=== PATIENT | male | born 2000 | race Caucasian/White ===

== ENCOUNTER 2020-08-28 09:56 | Observation (INO) | payer OTHER, MEDICAID, SELFPAY ==
[2020-08-28] VITALS (24 sets, daily range): BP systolic 113–143; BP diastolic 57–79; PULSE 61–87; RESP 12–22; TEMP 36.6–36.9; O2SAT 97–100; BMI 38.4; BMI 33.0
[2020-08-28 10:43] LABS: Add Manual Diff / Slide Review NO; Basophils Absolute Auto 0 /uL (0-100); Basophils Percent Auto 0.5 % (0-2); Eosinophils Absolute Auto 100 /uL (0-450); Hematocrit 50.1 % (41-53); Hemoglobin 16.5 g/dL (13.5-17.5); Lymphocytes Absolute Auto 1900 /uL (1100-4500); Lymphocytes Percent Auto 22.1 % (25-40); Mean Corpuscular HGB Conc 32.9 % (30-36); Mean Corpuscular Hemoglobin 28.9 PG (26-34); Mean Corpuscular Volume 87.6 fL (80-100); Monocytes Absolute Auto 500 /uL (0-900); Monocytes Percent Auto 5.5 % (3-14); Neutrophils Absolute Auto 6000 /uL (1500-7000); Neutrophils Percent Auto 70.9 % (50-75); Platelet Count 257 X10^3/uL (150-400); Red Blood Cell Count 5.71 X10^6/uL (4.5-5.9); Red Cell Distribution Width 14.2 % (11.6-14.8); White Blood Cell Count 8.5 X10^3/uL (4.5-11.0)
[2020-08-28 10:52] LABS: Bacteria Urine None Seen; WBC Urine None Seen (0-5/HPF)
[2020-08-28 10:54] LABS: Alanine Aminotransferase 19 IU/L (<50); Albumin 4.8 g/dL (3.5-5.0); Albumin Globulin Ratio 1.4 (1.0-2.8); Alkaline Phosphatase 86 U/L (38-126); Aspartate Aminotransferase 18 IU/L (17-59); BUN Creatinine Ratio 17.2 (6-22); Bilirubin Total 0.8 mg/dL (0.2-1.3); Blood Urea Nitrogen 10 mg/dL (9-20); Calcium 9.9 mg/dL (8.4-10.2); Carbon Dioxide 27 mmol/L (22-32); Chloride 99 mmol/L (98-107); Estimated Glomerular Filt Rate > 60.0 mL/min (>60); Globulin 3.4 g/dL (1.7-4.1); Glucose 338 mg/dL (70-100); HEMOLYSIS 21 (0-50); Potassium 3.9 mmol/L (3.4-5.1); Sodium 136 mmol/L (137-145); Total Protein 8.2 g/dL (6.3-8.2)
[2020-08-28 10:56] LABS: Ketones (Beta-Hydroxybutyrate) 0.33 mmol/L (<0.27)
[2020-08-28] MEDS: SODIUM CHLORIDE 0.9% 1,000 ML 1000 ML IV (10:57)
[2020-08-28 11:02] LABS: Culture Indicated Urine Cult Not Indicated; RBC Urine 0-1/HPF (0-5/HPF)
--- NOTE | 2020-08-28 12:24 | ED_ITS ---
HPI - General Adult General Chief complaint: Diabetic Problem Stated complaint: diabetic Time Seen by Provider: 08/28/20 10:12 Source: patient and family Mode of arrival: Wheelchair History of Present Illness HPI narrative: Patient here with his brother. I did speak with his mother by phone. Patient denies any drug use. Patient states he is not out of his diabetes medications. Just prior take it in the past couple weeks. He did take it last night. No nausea vomiting diarrhea dysuria polyuria polydipsia polyphagia. Patient complains of chest pain with near-syncope and dyspnea palpitations and blurry vision. Onset 3 hours ago at work. Was doing heavy lifting moving crab legs. 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 Had blurry vision right eye than the left eye. Then had palpitations and chest pain and near- syncope. Lasted about 1 hour. Now symptoms have resolved. Strong family history of coronary disease and strokes. Patient mother had heart attack last month. His grandfather has history of heart disease. Each of them started in early 40s. Patient is 19 years old. Related Data Home Medications Medication Instructions Recorded Confirmed glipizide 10 mg PO BID 08/29/20 08/29/20 Allergies Allergy/AdvReac Type Severity Reaction Status Date / Time No Known Drug Allergies Allergy Verified 08/28/20 10:01 Review of Systems Review of Systems Narrative: GENERAL: Denies chills, fatigue, malaise, fever, sweats. HEENT: Denies sinus pain, ear pain, sore throat, difficulty swallowing RESPIRATORY: Complains of dyspnea, denies cough CARDIOVASCULAR: Complains of chest pain, palpitations, edema, GASTROINTESTINAL: Denies nausea, vomiting, abdominal pain, diarrhea, constipation, melena. : Denies dysuria, frequency, hematuria MUSCULOSKELETAL: denies muscle or bony pain SKIN: Denies rash, skin lesions NEUROLOGIC: Denies weakness, headache, numbness, change in speech, confusion PSYCHIATRIC: No SI or HI or hallucinations ROS Unobtainable: All systems reviewed & are unremarkable except as noted in HPI and below Patient History Family History (Updated 08/29/20 @ 01:41 by KEENA Moss-) Mother Heart attack Grandfather Heart disease Social History household members: family Smoking Status: Unknown if ever smoked Smoking Status: Unknown if ever smoked alcohol intake frequency: holidays/special occasions only Substance Use Type: does not use Exam Narrative Exam Narrative: GENERAL: patient appears stated age. Well-nourished, well-developed patient, in no distress, not toxic not dyspneic HEAD: Normocephalic. EYES: Pupils equal round and reactive. No scleral icterus. No injection no discharge ENT: Mucous membranes moist. No drooling no tongue elevation no trismus no malocclusion NECK: Trachea midline. Non tender CARDIOVASCULAR: Regular rate and rhythm without murmurs, gallops, or rubs. RESPIRATORY: Clear to auscultation. Breath sounds equal bilaterally. No wheezes, rales, or rhonchi. GASTROINTESTINAL: Abdomen soft, non-tender, nondistended. EXTREMITIES: No gross deformities. BACK: Nontender without deformity or crepitance. No flank tenderness. NEURO: AOx4. SKIN: Warm and dry PSYCH: Not anxious, is cooperative Initial Vital Signs Initial Vital Signs: Vital Signs Temperature 98.4 F 08/28/20 10:01 Pulse Rate 86 08/28/20 10:01 Respiratory Rate 16 08/28/20 10:01 Blood Pressure 119/73 08/28/20 10:01 Pulse Oximetry 98 08/28/20 10:01 Scores HEART Score Heart Score history: Moderately Suspicious Heart Score EKG: Non-Specific repolarization disturbance Heart Score Age: < 45 years old Heart Score risk factors: 1-2 risk factors Heart Score troponin: < or = to normal limit Heart Score Total: 3 Course Course Course Narrative: No chest pain at this time Decision to Admit Date: 08/28/20 Decision to Admit time: 15:05 Orders Ordered: Acetaminophen (Tylenol) 650 mg PO Q6HR PRN PRN Reason: Fever/Mild Pain (1-3) Al Hydrox/Mg Hydrox/Simethicone (Maalox Plus) 30 ml PO Q6HR PRN PRN Reason: Dyspepsia Aspirin (Aspirin Ec) 81 mg PO DAILY MARILYN Last Admin: 08/29/20 08:39 Dose: 81 mg Documented by: CMCFARL Bisacodyl (Dulcolax) 10 mg [place] DAILY PRN PRN Reason: Constipation Calcium Carbonate (Tums) 1,000 mg PO Q4HR PRN PRN Reason: Dyspepsia Dextrose (D50w) 25 gm IV PRN PRN; Protocol PRN Reason: Hypoglycemia Dextrose (D50w) 25 gm IV PRN PRN; Protocol PRN Reason: Hypoglycemia Insulin Aspart (Novolog Flexpen) 0 unit SUBCUT [facility]; Protocol Last Admin: 08/29/20 08:39 Dose: 2 unit Documented by: LAUREANO Cosigned by: NEHEMIAH Morphine Sulfate (Morphine) 2 mg IV Q5MIN PRN PRN Reason: Chest Pain Naloxone HCl (Narcan) 0.2 mg IV Q2MIN PRN PRN Reason: Opiate Reversal Nitroglycerin (Nitrostat) 0.4 mg SL [id number] PRN PRN Reason: Chest Pain Ondansetron HCl (Zofran) 4 mg IV Q8HR PRN PRN Reason: Nausea And Vomiting Sodium Chloride (Normal Saline 0.9% Flush) 10 ml IV PRN PRN PRN Reason: Flush Sodium Chloride (Normal Saline 0.9% Flush) 10 ml IV BID [facility] Last Admin: 08/29/20 08:40 Dose: 10 ml Documented by: Admin: 08/28/20 21:38 Dose: 10 ml Documented by: JOSE Discontinued Medications Aspirin (Aspirin Chew) 324 mg PO NOW ONE Stop: 08/28/20 15:06 Last Admin: 08/28/20 15:37 Dose: 324 mg Documented by: AALIYAH Sodium Chloride (Normal Saline 0.9%) 1,000 mls @ 1,000 mls/hr IV BOLUS ONE Stop: 08/28/20 11:14 Last Infusion: 08/28/20 12:29 Dose: 0 mls/hr Documented by: Admin: 08/28/20 10:57 Dose: 1,000 mls/hr Documented by: TIMO Insulin Aspart (Novolog Flexpen) 0 unit SUBCUT [facility]; Protocol Last Admin: 08/29/20 08:42 Dose: Not Given Documented by: Admin: 08/28/20 21:02 Dose: Not Given Documented by: JOSE Reevaluation(s) Reevaluation #1: No active chest pain at this time no arrhythmia Time: 15:27 Consultations Consultation #1: Spoke with cardiology Dr. Chun, recommends patient for treadmill stress test. No echocardiogram Time: 15:06 Consultation #2: Spoke with hospitalist, Dr. Fair, will admit Time: 15:28 Vital Signs Vital signs: Vital Signs - 8 hr 08/28/20 10:01 08/28/20 10:37 08/28/20 10:52 Temperature 98.4 F Pulse Rate 86 84 76 Pulse Rate [Orthostatic Lying] Pulse Rate [Orthostatic Sitting] Pulse Rate [Orthostatic Standing] Respiratory Rate 16 13 Blood Pressure 119/73 116/73 Blood Pressure [Orthostatic Lying] Blood Pressure [Orthostatic Sitting] Blood Pressure [Orthostatic Standing] Pulse Oximetry 98 98 99 08/28/20 11:00 08/28/20 11:30 08/28/20 12:00 Temperature Pulse Rate 79 79 76 Pulse Rate [Orthostatic Lying] Pulse Rate [Orthostatic Sitting] Pulse Rate [Orthostatic Standing] Respiratory Rate 20 19 18 Blood Pressure 131/68 120/65 139/74 Blood Pressure [Orthostatic Lying] Blood Pressure [Orthostatic Sitting] Blood Pressure [Orthostatic Standing] Pulse Oximetry 97 99 100 08/28/20 12:30 08/28/20 12:50 08/28/20 12:51 Temperature Pulse Rate 73 76 81 Pulse Rate [Orthostatic Lying] Pulse Rate [Orthostatic Sitting] Pulse Rate [Orthostatic Standing] Respiratory Rate 22 20 19 Blood Pressure 124/74 125/79 129/79 Blood Pressure [Orthostatic Lying] Blood Pressure [Orthostatic Sitting] Blood Pressure [Orthostatic Standing] Pulse Oximetry 99 99 98 08/28/20 12:53 08/28/20 13:00 08/28/20 13:30 Temperature Pulse Rate 68 71 Pulse Rate [Orthostatic Lying] 77 Pulse Rate [Orthostatic Sitting] 79 Pulse Rate [Orthostatic Standing] 77 Respiratory Rate 17 21 Blood Pressure 120/72 Blood Pressure [Orthostatic Lying] 125/79 Blood Pressure [Orthostatic Sitting] 132/74 Blood Pressure [Orthostatic Standing] 129/79 Pulse Oximetry 98 99 Medical Decision Making Differential Diagnosis Differential Diagnosis: Chest pain/arrhythmia/dehydration/hyperglycemia angina Lab Data Lab results reviewed: Yes I reviewed the patient's lab results. Result diagrams: 08/29/20 05:13 08/29/20 05:13 Labs: Lab Results 08/28/20 08/28/20 08/28/20 Range/Units 10:35 10:35 10:35 WBC 8.5 (4.5-11.0) X10^3/uL RBC 5.71 (4.5-5.9) X10^6/uL Hgb 16.5 (13.5-17.5) g/dL Hct 50.1 (41-53) % MCV 87.6 (80-100) fL MCH 28.9 (26-34) PG MCHC 32.9 (30-36) % RDW 14.2 (11.6-14.8) % Plt Count 257 (150-400) X10^3/uL Neut % (Auto) 70.9 (50-75) % Lymph % (Auto) 22.1 L (25-40) % [place] % (Auto) 5.5 (3-14) % Eos % (Auto) 1.0 L (2-4) % Baso % (Auto) 0.5 (0-2) % Neut # (Auto) 6000 (9540-5920) /uL Lymph # (Auto) 1900 (8056-9126) /uL [place] # (Auto) 500 (0-900) /uL Eos # (Auto) 100 (0-450) /uL Baso # (Auto) 0 (0-100) /uL Sodium 136 L (137-145) mmol/L Potassium 3.9 (3.4-5.1) mmol/L Chloride 99 (98-107) mmol/L Carbon Dioxide 27 (22-32) mmol/L BUN 10 (9-20) mg/dL Creatinine 0.58 L (0.66-1.25) mg/dL Estimated GFR > 60.0 (>60) mL/min BUN/Creatinine Ratio 17.2 (6-22) Glucose 338 H (70-100) mg/dL Calcium 9.9 (8.4-10.2) mg/dL Magnesium (1.6-2.3) mg/dL Total Bilirubin 0.8 (0.2-1.3) mg/dL AST 18 (17-59) IU/L ALT 19 (<50) IU/L Alkaline Phosphatase 86 (38-126) U/L Total Creatine Kinase 73 (55-170) U/L CK-MB (CK-2) TNP CK-MB (CK-2) Rel Index TNP Troponin I < 0.012 (0.01-0.034) ng/mL Total Protein 8.2 (6.3-8.2) g/dL Albumin 4.8 (3.5-5.0) g/dL Globulin 3.4 (1.7-4.1) g/dL Albumin/Globulin Ratio 1.4 (1.0-2.8) Urine RBC (0-5/HPF) Urine WBC (0-5/HPF) Urine Bacteria (None) Ur Culture Indicated? U Opiates 300ng/mL cut (Negative) Ur Oxycodone Screen (Negative) Urine Methadone Screen (Negative) Ur Barbiturates Screen (Negative) U Tricyclic Antidepress (Negative) Ur Phencyclidine Scrn (Negative) Ur Amphetamines Screen (Negative) U Methamphetamines Scrn (Negative) Ur MDMA Scrn (Ecstasy) (Negative) U Benzodiazepines Scrn (Negative) Urine Cocaine Screen (Negative) U Marijuana (THC) Screen (Negative) Ketones 0.33 H (<0.27) mmol/L 08/28/20 08/28/20 08/28/20 Range/Units 10:35 10:37 10:37 WBC (4.5-11.0) X10^3/uL RBC (4.5-5.9) X10^6/uL Hgb (13.5-17.5) g/dL Hct (41-53) % MCV (80-100) fL MCH (26-34) PG MCHC (30-36) % RDW (11.6-14.8) % Plt Count (150-400) X10^3/uL Neut % (Auto) (50-75) % Lymph % (Auto) (25-40) % [place] % (Auto) (3-14) % Eos % (Auto) (2-4) % Baso % (Auto) (0-2) % Neut # (Auto) (7437-5204) /uL Lymph # (Auto) (7567-4106) /uL [place] # (Auto) (0-900) /uL Eos # (Auto) (0-450) /uL Baso # (Auto) (0-100) /uL Sodium (137-145) mmol/L Potassium (3.4-5.1) mmol/L Chloride (98-107) mmol/L Carbon Dioxide (22-32) mmol/L BUN (9-20) mg/dL Creatinine (0.66-1.25) mg/dL Estimated GFR (>60) mL/min BUN/Creatinine Ratio (6-22) Glucose (70-100) mg/dL Calcium (8.4-10.2) mg/dL Magnesium 2.0 (1.6-2.3) mg/dL Total Bilirubin (0.2-1.3) mg/dL AST (17-59) IU/L ALT (<50) IU/L Alkaline Phosphatase (38-126) U/L Total Creatine Kinase (55-170) U/L CK-MB (CK-2) CK-MB (CK-2) Rel Index Troponin I (0.01-0.034) ng/mL Total Protein (6.3-8.2) g/dL Albumin (3.5-5.0) g/dL Globulin (1.7-4.1) g/dL Albumin/Globulin Ratio (1.0-2.8) Urine RBC 0-1/hpf (0-5/HPF) Urine WBC None seen (0-5/HPF) Urine Bacteria None seen (None) Ur Culture Indicated? Cult not indicated U Opiates 300ng/mL cut Negative (Negative) Ur Oxycodone Screen Negative (Negative) Urine Methadone Screen Negative (Negative) Ur Barbiturates Screen Negative (Negative) U Tricyclic Antidepress Negative (Negative) Ur Phencyclidine Scrn Negative (Negative) Ur Amphetamines Screen Negative (Negative) U Methamphetamines Scrn Negative (Negative) Ur MDMA Scrn (Ecstasy) Negative (Negative) U Benzodiazepines Scrn Negative (Negative) Urine Cocaine Screen Negative (Negative) U Marijuana (THC) Screen Positive H (Negative) Ketones (<0.27) mmol/L Point of Care Testing Glucose POC 354 Urine Dip Bedside Urine Glucose 1000 mg/dl Bedside Urine Bilirubin - Negative Bedside Urine Ketone +/- 5 Urine Specific [place] 1.015 Bedside Urine Occult Blood - Negative Bedside Urine pH 6.0 Bedside Urine Protein - Negative Bedside Urine Urobilinogen - Negative Bedside Urine Nitrite - Negative Bedside Urine Leukocytes - Negative Esterase Point of care testing: Point of Care Testing Glucose POC 354 Urine Dip Bedside Urine Glucose 1000 mg/dl Bedside Urine Bilirubin - Negative Bedside Urine Ketone +/- 5 Urine Specific [place] 1.015 Bedside Urine Occult Blood - Negative Bedside Urine pH 6.0 Bedside Urine Protein - Negative Bedside Urine Urobilinogen - Negative Bedside Urine Nitrite - Negative Bedside Urine Leukocytes - Negative Esterase Imaging Data Chest x-ray: Radiologist's Impression: [address] [address] XRay Report Signed Patient: Ryan Kaplan lMR#: [id number] : 2000Acct:[id number] Age/Sex: 19 / MDate of Service: 08/28/20 Loc: ED Accession Number: [id number] Procedure: XR chest 1V Ordering Provider: Jimmy Rosario MD PROCEDURE: XR CHEST 1V INDICATIONS: Chest pain TECHNIQUE: One view of the chest was acquired. COMPARISON: None. FINDINGS: Surgical changes and devices: None. Lungs and pleura: Lungs are clear. No pleural effusions or pneumothorax. Mediastinum: Mediastinal contours appear normal. Heart size is normal. Bones and chest wall: No suspicious bony lesions. Overlying soft tissues appear unremarkable. IMPRESSION: No acute cardiopulmonary abnormalities or focal airspace disease. Dictated by: Tod Soriano M.D. on 08/28/2020 at 11:47 Approved by: Tod Soriano M.D. on 08/28/2020 at 11:47 ECG Data Attestation: I personally reviewed and interpreted this ECG as follows: Interpretation: Sinus rhythm. Rate 70. LVH versus normal variant. No ST elevation. MDM Narrative Medical decision making narrative: Patient has family risk factors for coronary disease. Has some abnormalities EKG. Reviewed with cert pharmacy tech and appropriate for admission Discharge Plan Departure Patient Disposition: Admitted as Observation Clinical Impression: Chest pain Qualifiers: Chest pain type: unspecified Qualified Code(s): R07.9 - Chest pain, unspecified Discharge Date/Time: 08/28/20 17:42 Admit Date/Time: 08/28/20 15:49 Admit Provider: Jacqueline Fair
[2020-08-28 12:30] LABS: Creatine Kinase 73 U/L (55-170)
[2020-08-28 12:44] LABS: Troponin I < 0.012 ng/mL (0.01-0.034)
[2020-08-28 14:40] LABS: UR Morphine/Opiate cutoff 300 Negative (Negative); Ur Creatinine Normal (Normal); Ur Specific Gravity Normal (Normal); Urine Amphetamines Negative (Negative); Urine Barbiturates Negative (Negative); Urine Benzodiazepines Negative (Negative); Urine Cocaine Negative (Negative); Urine MDMA Negative (Negative); Urine Methadone Negative (Negative); Urine Methamphetamines Negative (Negative); Urine Oxycodone Negative (Negative); Urine Phencyclidine Negative (Negative); Urine Tetrahydrocannabinol Positive (Negative); Urine Tricyclic Antidepressant Negative (Negative); Urine pH Normal (Normal)
[2020-08-28] MEDS: ASPIRIN 81 MG CHEW TAB 324 MG PO (15:37)
[2020-08-28 16:50] LABS: COVID19 -Nasal RAPID Negative (Negative)
[2020-08-28 17:45] LABS: Hemoglobin A1C% w Est Avg Glu 12.4 % (4.0-6.0)
[2020-08-28 18:14] LABS: Creatine Kinase 60 U/L (55-170)
[2020-08-28 18:27] LABS: Troponin I < 0.012 ng/mL (0.01-0.034)
--- NOTE | 2020-08-28 20:19 | PC.NURSE ---
pt A&OX3 100%RA. denied pain. pt has been on tele since admit to [facility]. denied any chest pain. was sob transferring from wheel chair to bed. oriented pt to the room.
--- NOTE | 2020-08-28 21:31 | DI.ECHO.S_ITS ---
[facility] +---------+ [facility] +---------+ : : [address] [place] : : : : [id number] : : : : Phone: [phone]+ Echocardiogram Report + + :Name: HECTOR SEGUNDO Study Date: 08/29/2020 Height: 69 in : :[facility] Weight: 223 lb : : Gender: Male BSA: 2.2 m2 : :: 2000 Age: 19 yrs BP: 114/78 mmHg: :Reason For Study: CHEST PAIN : :Ordering Physician: : :ELIASISTSARAH Performed By: Lulu Key : :Referring: MANFRED JACKSON : + + Interpretation Summary Left ventricular ejection fraction is estimated to be 55 +/- 5%. There is no significant valvular heart disease. Procedure: A two-dimensional transthoracic echocardiogram with color flow and Doppler was performed. The study quality was technically adequate. A contrast injection of Definity was performed to improve assessment of LV function. There is no prior echocardiogram noted for this patient. Contrast was injected into an intravenous site in the left arm. The patient was in sinus rhythm with heart rates between 56-72 bpm during the exam. Left Ventricle: The left ventricle is normal in size and wall thickness. Left ventricular ejection fraction is estimated to be 55 +/- 5%. Left ventricular wall motion is normal. Diastolic parameters suggest probable normal left ventricular diastolic function and normal filling pressures. Right Ventricle: The right ventricle is borderline dilated. The right ventricular systolic function is normal. Atria: The left atrial size is normal. Right atrial size is normal. There is no Doppler evidence for an interatrial shunt. Mitral Valve: The mitral valve is normal in structure and function. There is trace mitral regurgitation. Aortic Valve: The aortic valve is trileaflet. The aortic valve opens well. There is no aortic valve stenosis. No aortic regurgitation is present. Tricuspid Valve: The tricuspid valve is normal in structure and function. There is mild tricuspid regurgitation. The right ventricular systolic pressure is estimated to be at least 22 mmHg based on an estimated right atrial pressure of 3 mm Hg. Pulmonic Valve: The pulmonic valve leaflets are thin and pliable; valve motion is normal. There is trace pulmonic regurgitation. Great Vessels: The aortic root is normal size. The dimensions of the ascending aorta are normal. The IVC is of normal diameter and collapses greater than 50% with a sniff. This suggests a low right atrial pressure of 3 mm Hg. Pericardium/ Pleura There is no pericardial effusion. There is no pleural effusion. MMode/2D Measurements & Calculations LVIDd: 5.3 cm LVOT diam: 2.4 cm LVIDs: 3.9 cm Ao root diam: 3.0 cm FS: 26.7 % asc Aorta Diam: 2.7 cm EPSS: 1.1 cm Ao Arch Diam (Prox Trans): 2.7 cm IVSd: 0.65 cm LVPWd: 0.99 cm LV euceda. diameter/BSA (cm/m^2): 2.5 LV sys. diameter/BSA (cm/m^2): 1.8 LA A2 area: 15.1 cm2 RA long axis: 4.6 cm LA A4 area: 16.2 cm2 RA area: 13.7 cm2 LA length (vol): 5.2 cm RA vol: 34.7 ml LA vol: 39.5 ml RA : 16.1 ml/m2 LA vol index: 18.2 ml/m2 IVC diam: 1.0 cm RVD1 (basal): 4.1 cm TAPSE: 1.7 cm Doppler Measurements & Calculations Ao V2 max: 147.6 cm/sec LVOT Max Audie: 85.1 cm/sec Ao V2 mean: 101.0 cm/sec LV V1 max P.9 mmHg Ao max P.7 mmHg LV V1 VTI: 13.8 cm Ao mean P.4 mmHg RIAIDA(I,D): 2.2 cm2 Ao V2 VTI: 27.7 cm IRAIDA(V,D): 2.6 cm2 sev ratio: 0.50 IRAIDA indexed to BSA (cm^2/m^2): 1.0 MV E max audie: 80.8 cm/sec TR max audie: 220.2 cm/sec MV A max audie: 51.7 cm/sec TR max P.9 mmHg MV E/A: 1.6 PA V2 max: 68.1 cm/sec Med Peak E' Audie: 12.6 cm/sec PA V2 mean: 42.9 cm/sec E/E' med: 6.4 PA mean P.88 mmHg Lat Peak E' Audie: 16.8 cm/sec PA pr(Accel): 25.9 mmHg E/E' lat: 4.8 E/e' average: 5.6 MV dec time: 0.23 sec SVLVOT): 61.1 ml Reading Physician:03:34 PM
[2020-08-28] MEDS: SODIUM CHLORIDE 0.9% FLUSH 10 ML IV (21:38)
[2020-08-28 22:07] LABS: Magnesium 1.9 mg/dL (1.6-2.3)
[2020-08-29] VITALS: O2SAT 95
[2020-08-29 00:01] VITALS: BP 134/71; PULSE 67; RESP 16; TEMP 36.7; O2SAT 95
[2020-08-29 00:15] LABS: Troponin I < 0.012 ng/mL (0.01-0.034)
--- NOTE | 2020-08-29 01:30 | PM.HP.1 ---
History of Present Illness History of Present Illness Date Patient Seen: 08/29/20 Time Patient Seen: 01:00 Chief complaint: diabetic Patient History Family & Social History Family History (Updated 08/29/20 @ 01:41 by JOE Moss) Mother Heart attack Grandfather Heart disease Social History: household members family Prior Living Arrangements House Safety & Behavioral: Feels Safe in Current Yes Environment Been Physically Hurt or No Threatened By a Person Suicidal Ideation Description None Suicide Plan Description No Plan Tobacco & Substance use: Smoking Status Unknown if ever smoked alcohol intake frequency holiday/special occasion Substance Use Type does not use Meds Home Medications and Allergies Home Medications Medication Instructions Recorded Confirmed Type glipizide 1-2XD 08/29/20 History Allergies Allergy/AdvReac Type Severity Reaction Status Date / Time No Known Drug Allergies Allergy Verified 08/28/20 10:01 Review of Systems Review of Systems Narrative: ROS: Yes All systems reviewed with the patient and are negative except as otherwise documented Exam Vital Signs (past 8 hours): - 08/28/20 17:55 08/28/20 21:15 08/28/20 21:36 Temperature 98.3 F 97.9 F Pulse Rate 64 64 Respiratory Rate 18 17 Blood Pressure 127/71 127/61 Pulse Oximetry 100 98 100 08/29/20 00:01 Temperature 98.1 F Pulse Rate 67 Respiratory Rate 16 Blood Pressure 134/71 Pulse Oximetry 95 Oxygen Delivery Method Room Air Oxygen Flow Rate 0 Objective Labs Result Diagrams: 08/28/20 10:35 08/28/20 10:35 Labs: Laboratory Results - last 24 hr 08/28/20 08/28/20 08/28/20 10:35 10:35 10:35 WBC 8.5 RBC 5.71 Hgb 16.5 Hct 50.1 MCV 87.6 MCH 28.9 MCHC 32.9 RDW 14.2 Plt Count 257 Neut % (Auto) 70.9 Lymph % (Auto) 22.1 L [place] % (Auto) 5.5 Eos % (Auto) 1.0 L Baso % (Auto) 0.5 Neut # (Auto) 6000 Lymph # (Auto) 1900 [place] # (Auto) 500 Eos # (Auto) 100 Baso # (Auto) 0 Sodium 136 L Potassium 3.9 Chloride 99 Carbon Dioxide 27 BUN 10 Creatinine 0.58 L Estimated GFR > 60.0 BUN/Creatinine Ratio 17.2 Glucose 338 H Hemoglobin A1c Calcium 9.9 Magnesium Total Bilirubin 0.8 AST 18 ALT 19 Alkaline Phosphatase 86 Total Creatine Kinase 73 CK-MB (CK-2) TNP CK-MB (CK-2) Rel Index TNP Troponin I < 0.012 Total Protein 8.2 Albumin 4.8 Globulin 3.4 Albumin/Globulin Ratio 1.4 Urine RBC Urine WBC Urine Bacteria Ur Culture Indicated? U Opiates 300ng/mL cut Ur Oxycodone Screen Urine Methadone Screen Ur Barbiturates Screen U Tricyclic Antidepress Ur Phencyclidine Scrn Ur Amphetamines Screen U Methamphetamines Scrn Ur MDMA Scrn (Ecstasy) U Benzodiazepines Scrn Urine Cocaine Screen U Marijuana (THC) Screen Ketones 0.33 H COVID-19 PCR 08/28/20 08/28/20 08/28/20 10:35 10:37 10:37 WBC RBC Hgb Hct MCV MCH MCHC RDW Plt Count Neut % (Auto) Lymph % (Auto) [place] % (Auto) Eos % (Auto) Baso % (Auto) Neut # (Auto) Lymph # (Auto) [place] # (Auto) Eos # (Auto) Baso # (Auto) Sodium Potassium Chloride Carbon Dioxide BUN Creatinine Estimated GFR BUN/Creatinine Ratio Glucose Hemoglobin A1c Calcium Magnesium 2.0 Total Bilirubin AST ALT Alkaline Phosphatase Total Creatine Kinase CK-MB (CK-2) CK-MB (CK-2) Rel Index Troponin I Total Protein Albumin Globulin Albumin/Globulin Ratio Urine RBC 0-1/hpf Urine WBC None seen Urine Bacteria None seen Ur Culture Indicated? Cult not indicated U Opiates 300ng/mL cut Negative Ur Oxycodone Screen Negative Urine Methadone Screen Negative Ur Barbiturates Screen Negative U Tricyclic Antidepress Negative Ur Phencyclidine Scrn Negative Ur Amphetamines Screen Negative U Methamphetamines Scrn Negative Ur MDMA Scrn (Ecstasy) Negative U Benzodiazepines Scrn Negative Urine Cocaine Screen Negative U Marijuana (THC) Screen Positive H Ketones COVID-19 PCR 08/28/20 08/28/20 08/28/20 16:00 17:34 17:56 WBC RBC Hgb Hct MCV MCH MCHC RDW Plt Count Neut % (Auto) Lymph % (Auto) [place] % (Auto) Eos % (Auto) Baso % (Auto) Neut # (Auto) Lymph # (Auto) [place] # (Auto) Eos # (Auto) Baso # (Auto) Sodium Potassium Chloride Carbon Dioxide BUN Creatinine Estimated GFR BUN/Creatinine Ratio Glucose Hemoglobin A1c 12.4 H Calcium Magnesium Total Bilirubin AST ALT Alkaline Phosphatase Total Creatine Kinase 60 CK-MB (CK-2) TNP CK-MB (CK-2) Rel Index TNP Troponin I < 0.012 Total Protein Albumin Globulin Albumin/Globulin Ratio Urine RBC Urine WBC Urine Bacteria Ur Culture Indicated? U Opiates 300ng/mL cut Ur Oxycodone Screen Urine Methadone Screen Ur Barbiturates Screen U Tricyclic Antidepress Ur Phencyclidine Scrn Ur Amphetamines Screen U Methamphetamines Scrn Ur MDMA Scrn (Ecstasy) U Benzodiazepines Scrn Urine Cocaine Screen U Marijuana (THC) Screen Ketones COVID-19 PCR Negative 08/28/20 08/28/20 17:56 23:42 WBC RBC Hgb Hct MCV MCH MCHC RDW Plt Count Neut % (Auto) Lymph % (Auto) [place] % (Auto) Eos % (Auto) Baso % (Auto) Neut # (Auto) Lymph # (Auto) [place] # (Auto) Eos # (Auto) Baso # (Auto) Sodium Potassium Chloride Carbon Dioxide BUN Creatinine Estimated GFR BUN/Creatinine Ratio Glucose Hemoglobin A1c Calcium Magnesium 1.9 Total Bilirubin AST ALT Alkaline Phosphatase Total Creatine Kinase CK-MB (CK-2) CK-MB (CK-2) Rel Index Troponin I < 0.012 Total Protein Albumin Globulin Albumin/Globulin Ratio Urine RBC Urine WBC Urine Bacteria Ur Culture Indicated? U Opiates 300ng/mL cut Ur Oxycodone Screen Urine Methadone Screen Ur Barbiturates Screen U Tricyclic Antidepress Ur Phencyclidine Scrn Ur Amphetamines Screen U Methamphetamines Scrn Ur MDMA Scrn (Ecstasy) U Benzodiazepines Scrn Urine Cocaine Screen U Marijuana (THC) Screen Ketones COVID-19 PCR Assessment & Plan Assessment & Plan narrative: 1. Angina: likely r/t hyperglycemia Chest pain resolved no further issues, patient has been monitored on tele has remained consistently in normal sinus rhythm, ECG and chest x-ray in ER were within normal limits. 2. Diabetes mellitus type 2: Uncontrolled Recommend dietary consult, weight loss and exercise, and follow-up with primary care to consider Lantus (for an A1C over 9) with metformin a 1000 mg b.i.d. to bring diabetes blood sugars under control. Patient also should have eye exam by Ophthalmology and diabetic foot exam initiated, and then Q yearly, A1C Q 3 months until under control. Obesity: BMI 33 weight 101.5 kg Recommend dietary consult, exercise, weight loss, and lifestyle changes.
--- NOTE | 2020-08-29 01:52 | PM.HP.1 ---
History of Present Illness History of Present Illness Date Patient Seen: 08/29/20 Time Patient Seen: 01:00 Chief complaint: diabetic Narrative: Patient is Ryan talavera, 19-year-old male who came into the emergency room today with a complaint of near syncope with chest pain palpitations, and blurry vision that went from his right to his left eye. 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 Upon presenting to the emergency room he stated that all his symptoms had resolved. Patient has a history of type 2 diabetes takes glipizide 10 mg b.i.d. patient notes that he ran out of his medication but reported that his last dose was the night before. Patient's vital signs in the emergency room were stable with a BMI of 33. Abnormal labs sodium 136, lymphs 22.1, senna feels 1.0, creatinine 0.58, glucose 338, and A1c 12.4. Patient has a fan strong family history of coronary syndrome and strokes mother apparently had a heart attack 1 month ago and grandfather has a noted history of heart disease. Patient had a chest x-ray and ECG Emergency within normal limits. Upon exam in the room patient reports that all symptoms have resolved and not reoccurred since today, and denies vision issues, chest pain, shortness of breath, palpitations, abdominal pain/discomfort, nausea, vomiting, diarrhea, dysuria, hematuria, polyuria, polydipsia, any abnormal bruising or bleeding, rashes or skin irritation, depression, or suicidal ideation. Patient does complain of mild discomfort a 4/10 to the left AC where the saline lock is present, assessed site: IV intact without inflammation, warmth, or redness. I asked patient if he wanted to have the IV lock removed he denied at this time. Discussed with patient his A1c level of 12.4, and that his blood sugars are running in the high 300s to possibly 400s on a daily basis, he reports his last visit to his primary care was over a year ago. I discussed with patient that he needs to follow up with his primary care and consider insulin for diabetes management. Discussed with patient the serious health outcomes regarding uncontrolled blood sugars and diabetes. Patient History Family & Social History Family History (Updated 08/29/20 @ 01:41 by KEENA Moss-BC) Mother Heart attack Grandfather Heart disease Social History: household members family Prior Living Arrangements House Safety & Behavioral: Feels Safe in Current Yes Environment Been Physically Hurt or No Threatened By a Person Suicidal Ideation Description None Suicide Plan Description No Plan Tobacco & Substance use: Smoking Status Unknown if ever smoked alcohol intake frequency holiday/special occasion Substance Use Type does not use Meds Home Medications and Allergies Home Medications Medication Instructions Recorded Confirmed Type glipizide 1-2XD 08/29/20 History Allergies Allergy/AdvReac Type Severity Reaction Status Date / Time No Known Drug Allergies Allergy Verified 08/28/20 10:01 Review of Systems Review of Systems ROS: Yes All systems reviewed with the patient and are negative except as otherwise documented Exam Vital Signs (past 8 hours): - 08/28/20 17:55 08/28/20 21:15 08/28/20 21:36 Temperature 98.3 F 97.9 F Pulse Rate 64 64 Respiratory Rate 18 17 Blood Pressure 127/71 127/61 Pulse Oximetry 100 98 100 08/29/20 00:01 Temperature 98.1 F Pulse Rate 67 Respiratory Rate 16 Blood Pressure 134/71 Pulse Oximetry 95 Oxygen Delivery Method Room Air Oxygen Flow Rate 0 Narrative Exam Narrative: Exam Narrative: GENERAL APPEARANCE: well developed, well nourished young male in no distress. HEENT: Normocephalic, PERRLA, conjunctiva clear, EOMs intact without nystagmus, no sinus tenderness to percussion, no rhinorrhea, mucous membranes are moist and pink. NECK/THYROID: neck supple, no JVD, no carotid bruit, no thyromegaly, trachea midline. LYMPH NODES: no cervical or supraclavicular lymphadenopathy. SKIN: brown, warm and dry, no visible lesions, rashes, ulcerations or petechiae. HEART: regular rate and rhythm, S1-S2, no murmur, no rubs or gallops, brisk capillary refill, no edema LUNGS: clear to auscultation bilaterally, no coarseness crackles or wheezing, no cough present CHEST: Symmetrical movement, no accessory muscle use. ABDOMEN: no abd tenderness, no peritoneal signs, no organomegaly, no flank or suprapubic tenderness, active bowel sounds. BACK: Normal curvature, nontender to palpation, no CVA tenderness on percussion, no back pain with straight leg raise EXTREMITIES: moves all extremities, strength is 5/5 and symmetrical, no deformities or joint effusions. NEUROLOGIC: AAO x 3, no focal neurologic deficits, sensation intact to light touch, hearing grossly normal to speech. PSYCH: Good eye contact, cooperative, appropriate with stable behavior Objective Labs Result Diagrams: 08/28/20 10:35 08/28/20 10:35 Labs: Laboratory Results - last 24 hr 08/28/20 08/28/20 08/28/20 10:35 10:35 10:35 WBC 8.5 RBC 5.71 Hgb 16.5 Hct 50.1 MCV 87.6 MCH 28.9 MCHC 32.9 RDW 14.2 Plt Count 257 Neut % (Auto) 70.9 Lymph % (Auto) 22.1 L [place] % (Auto) 5.5 Eos % (Auto) 1.0 L Baso % (Auto) 0.5 Neut # (Auto) 6000 Lymph # (Auto) 1900 [place] # (Auto) 500 Eos # (Auto) 100 Baso # (Auto) 0 Sodium 136 L Potassium 3.9 Chloride 99 Carbon Dioxide 27 BUN 10 Creatinine 0.58 L Estimated GFR > 60.0 BUN/Creatinine Ratio 17.2 Glucose 338 H Hemoglobin A1c Calcium 9.9 Magnesium Total Bilirubin 0.8 AST 18 ALT 19 Alkaline Phosphatase 86 Total Creatine Kinase 73 CK-MB (CK-2) TNP CK-MB (CK-2) Rel Index TNP Troponin I < 0.012 Total Protein 8.2 Albumin 4.8 Globulin 3.4 Albumin/Globulin Ratio 1.4 Urine RBC Urine WBC Urine Bacteria Ur Culture Indicated? U Opiates 300ng/mL cut Ur Oxycodone Screen Urine Methadone Screen Ur Barbiturates Screen U Tricyclic Antidepress Ur Phencyclidine Scrn Ur Amphetamines Screen U Methamphetamines Scrn Ur MDMA Scrn (Ecstasy) U Benzodiazepines Scrn Urine Cocaine Screen U Marijuana (THC) Screen Ketones 0.33 H COVID-19 PCR 08/28/20 08/28/20 08/28/20 10:35 10:37 10:37 WBC RBC Hgb Hct MCV MCH MCHC RDW Plt Count Neut % (Auto) Lymph % (Auto) [place] % (Auto) Eos % (Auto) Baso % (Auto) Neut # (Auto) Lymph # (Auto) [place] # (Auto) Eos # (Auto) Baso # (Auto) Sodium Potassium Chloride Carbon Dioxide BUN Creatinine Estimated GFR BUN/Creatinine Ratio Glucose Hemoglobin A1c Calcium Magnesium 2.0 Total Bilirubin AST ALT Alkaline Phosphatase Total Creatine Kinase CK-MB (CK-2) CK-MB (CK-2) Rel Index Troponin I Total Protein Albumin Globulin Albumin/Globulin Ratio Urine RBC 0-1/hpf Urine WBC None seen Urine Bacteria None seen Ur Culture Indicated? Cult not indicated U Opiates 300ng/mL cut Negative Ur Oxycodone Screen Negative Urine Methadone Screen Negative Ur Barbiturates Screen Negative U Tricyclic Antidepress Negative Ur Phencyclidine Scrn Negative Ur Amphetamines Screen Negative U Methamphetamines Scrn Negative Ur MDMA Scrn (Ecstasy) Negative U Benzodiazepines Scrn Negative Urine Cocaine Screen Negative U Marijuana (THC) Screen Positive H Ketones COVID-19 PCR 08/28/20 08/28/20 08/28/20 16:00 17:34 17:56 WBC RBC Hgb Hct MCV MCH MCHC RDW Plt Count Neut % (Auto) Lymph % (Auto) [place] % (Auto) Eos % (Auto) Baso % (Auto) Neut # (Auto) Lymph # (Auto) [place] # (Auto) Eos # (Auto) Baso # (Auto) Sodium Potassium Chloride Carbon Dioxide BUN Creatinine Estimated GFR BUN/Creatinine Ratio Glucose Hemoglobin A1c 12.4 H Calcium Magnesium Total Bilirubin AST ALT Alkaline Phosphatase Total Creatine Kinase 60 CK-MB (CK-2) TNP CK-MB (CK-2) Rel Index TNP Troponin I < 0.012 Total Protein Albumin Globulin Albumin/Globulin Ratio Urine RBC Urine WBC Urine Bacteria Ur Culture Indicated? U Opiates 300ng/mL cut Ur Oxycodone Screen Urine Methadone Screen Ur Barbiturates Screen U Tricyclic Antidepress Ur Phencyclidine Scrn Ur Amphetamines Screen U Methamphetamines Scrn Ur MDMA Scrn (Ecstasy) U Benzodiazepines Scrn Urine Cocaine Screen U Marijuana (THC) Screen Ketones COVID-19 PCR Negative 08/28/20 08/28/20 17:56 23:42 WBC RBC Hgb Hct MCV MCH MCHC RDW Plt Count Neut % (Auto) Lymph % (Auto) [place] % (Auto) Eos % (Auto) Baso % (Auto) Neut # (Auto) Lymph # (Auto) [place] # (Auto) Eos # (Auto) Baso # (Auto) Sodium Potassium Chloride Carbon Dioxide BUN Creatinine Estimated GFR BUN/Creatinine Ratio Glucose Hemoglobin A1c Calcium Magnesium 1.9 Total Bilirubin AST ALT Alkaline Phosphatase Total Creatine Kinase CK-MB (CK-2) CK-MB (CK-2) Rel Index Troponin I < 0.012 Total Protein Albumin Globulin Albumin/Globulin Ratio Urine RBC Urine WBC Urine Bacteria Ur Culture Indicated? U Opiates 300ng/mL cut Ur Oxycodone Screen Urine Methadone Screen Ur Barbiturates Screen U Tricyclic Antidepress Ur Phencyclidine Scrn Ur Amphetamines Screen U Methamphetamines Scrn Ur MDMA Scrn (Ecstasy) U Benzodiazepines Scrn Urine Cocaine Screen U Marijuana (THC) Screen Ketones COVID-19 PCR Assessment & Plan Assessment & Plan narrative: Assessment & Plan narrative: 1. Chest Pain - Acute, new onset. Chest pain resolved no further complaints, patient has been monitored on tele has remained consistently in normal sinus rhythm, ECG NSR, and chest x-ray within normal limits. Troponin x 3 negative. Hyperglycemia: Acute, chronic -BS 338 on admission 2. Diabetes mellitus type 2: Chronic Uncontrolled A1C 12.9 Recommend dietary consult, weight loss and exercise, and follow-up with primary care to consider Lantus (for an A1C over 9) with metformin a 1000 mg b.i.d. to bring diabetes blood sugars under control. Patient also should have eye exam by Ophthalmology and diabetic foot exam initiated, and then Q yearly, A1C Q 3 months until under control. Obesity: BMI 33 weight 101.5 kg Recommend dietary consult, exercise, weight loss, and lifestyle changes. HEART Score Heart Score history: Moderately Suspicious Heart Score EKG: Non-Specific repolarization disturbance Heart Score Age: < 45 years old Heart Score risk factors: 1-2 risk factors Heart Score troponin: < or = to normal limit Heart Score Total: 3 VTE -Bay Score Low Risk Code status Full- Decision maker Mother No IV fluids, NS Lock present on Left AC Ambulation: Independent, no fall risk Covid PCR: Negative Patient was hospitalized due to Cardiac Risk
[2020-08-29 04:00] VITALS: BP 116/75; PULSE 73; RESP 16; TEMP 36.4; O2SAT 98
[2020-08-29 05:29] LABS: Add Manual Diff / Slide Review NO; Basophils Absolute Auto 0 /uL (0-100); Basophils Percent Auto 0.3 % (0-2); Eosinophils Absolute Auto 200 /uL (0-450); Hematocrit 44.9 % (41-53); Hemoglobin 14.8 g/dL (13.5-17.5); Lymphocytes Absolute Auto 2000 /uL (1100-4500); Lymphocytes Percent Auto 23.9 % (25-40); Mean Corpuscular HGB Conc 32.9 % (30-36); Mean Corpuscular Hemoglobin 28.9 PG (26-34); Mean Corpuscular Volume 87.9 fL (80-100); Monocytes Absolute Auto 500 /uL (0-900); Neutrophils Absolute Auto 5600 /uL (1500-7000); Neutrophils Percent Auto 67.8 % (50-75); Platelet Count 226 X10^3/uL (150-400); Red Blood Cell Count 5.11 X10^6/uL (4.5-5.9); Red Cell Distribution Width 14.1 % (11.6-14.8); White Blood Cell Count 8.3 X10^3/uL (4.5-11.0)
[2020-08-29 05:38] LABS: BUN Creatinine Ratio 36.7 (6-22); Blood Urea Nitrogen 18 mg/dL (9-20); Calcium 9.1 mg/dL (8.4-10.2); Carbon Dioxide 26 mmol/L (22-32); Chloride 103 mmol/L (98-107); Cholesterol 128 mg/dL (140-199); Estimated Glomerular Filt Rate > 60.0 mL/min (>60); Glucose 250 mg/dL (70-100); HDL Cholesterol 50 mg/dL (40-60); HEMOLYSIS < 15 (0-50); LDL Cholesterol Calculated 59 mg/dL (<100); Potassium 3.9 mmol/L (3.4-5.1); Sodium 135 mmol/L (137-145); Triglycerides 94 mg/dL (35-150)
[2020-08-29 08:00] VITALS: BP 121/75; PULSE 81; RESP 16; TEMP 36.9; O2SAT 98
[2020-08-29] MEDS: INSULIN ASPART 100 UNIT/ML INSULN PEN SUBCUT ×2 (08:39→12:40)
[2020-08-29] MEDS: ASPIRIN EC 81 MG TABLET PO (08:39)
[2020-08-29] MEDS: SODIUM CHLORIDE 0.9% FLUSH 10 ML IV (08:40)
--- NOTE | 2020-08-29 10:36 | DIET.PN ---
Dietary Progress Note Assessment: 19y M admitted c uncontrolled diabetes with a complaint of near syncope with chest pain palpitations, and blurry vision that went from his right to his left eye. 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 Pt indicates he has had diabetes since childhood but this is the first time he has had an episode like this or any complications. Pt says he forgets to take his medications. Pt just moved to [place] 4wks ago and is living with his brother. Pt is still needing to find a local PCP. H&P indicated pt hasn't been to PCP in a year. Pt reports family hx of diabetes. Pts biological father from complications of diabetes after entering a diabetic coma when pt was 15y. Pts mom had a heart attack recently and pt indicated family history of heart disease. Pt says he received some diabetic education in [place] several years ago. However it is unclear to what extent of education he received. Recc. DSME. 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 Pt is motivated to get diabetes under control and understands how serious the condition is. Reports he has been trying to get rid of his diabetes. HT: 175.26cm WT:101kg BMI: 32.9 Labs: A1C: 12.4 H B H (on admit) Ketones: 0.33 H MNA:14 Jay: 23 Nutrition Diagnosis: Altered nutrition related lab values r/t uncontrolled diabetes and nutrition related knowledge deficit aeb A1C 12.4, BG 338, ketones 0.33, BMI 32.9, pt not always compliant c medications. Interventions: 1. Educated pt on how A1C is measured, what it means and impact of high BG on the body kevin. increased risk of cardiovascular disease. 2. Provided handouts reinforcing consistent CHO diet and CHO counting. 3. Recc. outpatient DSME. 4. Recc. CCD Diet Order: Heart healthy/ Cardiac Diet EER: 30-45g CHO meals, 15-30g CHO at snacks Monitoring/Evaluations: Outpatient DSME education
[2020-08-29 12:30] VITALS: BP 114/78; PULSE 83; RESP 17; TEMP 36.6; O2SAT 97
--- NOTE | 2020-08-29 13:56 | CM.DANOTE ---
Addendum entered by Yen Umana LPN 08/29/20 14:02: Shop Fitter did see pt re his uncontrolled diabetes. Original Note: Discharge Planning/Care Management DCP: assessment: case received, EMR reviewed and met now with pt. Introduced self and role. Pt was found up in room independently and in process of going off unit for a treadmill. A DC order has been in place since this morning but no further documention re this. Dr. Fair confirms now that her colleage Dr. Pat will see pt this afternoon. Pt is a 19 year old male who admitted yesterday late afternoon to care of hospitalist team. PCP: is a physician in [place]. He reports he will be establishing with someone else now that he is relocating here but that he can still see his [place] physician until that happens. Payer: [facility]/Medicaid Is unclear if pt will actually d/c today. Will check in tomorrow is still here and follow accordingly. CM Discharge Assessment Start: 08/29/20 13:54 Freq: Status: Active Protocol: Document 08/29/20 13:55 ITV (Rec: 08/29/20 13:56 ITV [id number]) Discharge Planning Assessment Advance Directives? No History Provided By Patient,Medical Record Prior Living Arrangements House Household Members family Comment pt is in process of moving in with his brother in [place] Independent with ADL's Yes Is patient alert and oriented? Yes
--- NOTE | 2020-08-29 15:28 | PM.DS.1 ---
History of Present Illness History of Present Illness Date Patient Seen: 08/29/20 Time Patient Seen: 15:28 Chief complaint: diabetic Narrative: As per KANE Moss: Patient is Ryan talavera, 19-year-old male who came into the emergency room today with a complaint of near syncope with chest pain palpitations, and blurry vision that went from his right to his left eye. 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 Upon presenting to the emergency room he stated that all his symptoms had resolved. Patient has a history of type 2 diabetes takes glipizide 10 mg b.i.d. patient notes that he ran out of his medication but reported that his last dose was the night before. Patient's vital signs in the emergency room were stable with a BMI of 33. Abnormal labs sodium 136, lymphs 22.1, senna feels 1.0, creatinine 0.58, glucose 338, and A1c 12.4. Patient has a fan strong family history of coronary syndrome and strokes mother apparently had a heart attack 1 month ago and grandfather has a noted history of heart disease. Patient had a chest x-ray and ECG Emergency within normal limits. Upon exam in the room patient reports that all symptoms have resolved and not reoccurred since today, and denies vision issues, chest pain, shortness of breath, palpitations, abdominal pain/discomfort, nausea, vomiting, diarrhea, dysuria, hematuria, polyuria, polydipsia, any abnormal bruising or bleeding, rashes or skin irritation, depression, or suicidal ideation. Patient does complain of mild discomfort a 4/10 to the left AC where the saline lock is present, assessed site: IV intact without inflammation, warmth, or redness. I asked patient if he wanted to have the IV lock removed he denied at this time. Discussed with patient his A1c level of 12.4, and that his blood sugars are running in the high 300s to possibly 400s on a daily basis, he reports his last visit to his primary care was over a year ago. I discussed with patient that he needs to follow up with his primary care and consider insulin for diabetes management. Discussed with patient the serious health outcomes regarding uncontrolled blood sugars and diabetes. Discharge Providers Provider Date of admission: 08/28/20 15:49 Discharge Date: 08/29/20 Consults: 08/28/20 21:26 Consult to Discharge Planning Routine Comment: 08/28/20 21:27 Consult to Dietitian, Adult Routine Comment: Reason For Exam: Uncontrolled diabetes Discharge provider: Blas Pat DO Summary Hospital Course Discharge Diagnosis: 1. Chest pain, acute, resolved before admission 2. Type 2 diabetes with hyperglycemia, acute, present on admission Hospital Course: Ryan talavera is a 19-year-old male with past medical history of type 2 diabetes who presented after an episode of near-syncope with chest pain and palpitations. His blood sugar was 338 on admission and his A1c resulted at 12.9%. His symptoms did not recur during the course his brief admission, and his telemetry was unremarkable. Patient underwent a treadmill EKG stress test which was deemed normal although the patient did not achieve his maximal heart rate after his leg seemingly gave out on him. He denied any chest pain, shortness of breath, or presyncopal symptoms during this episode. His echocardiogram was also unremarkable and he had negative troponins x3. He may have been slightly dehydrated with his hyperglycemia which may have led to his symptoms. The patient was out of his glipizide for the past few months and was actually using his mother's does. He will resume on this medication and he was started on low-dose Lantus at 5 units to avoid hypoglycemia. He further reported intolerance with metformin in the past and was not willing to restart this medicine at this time. Patient is looking to establish care at the primary care clinics associated with [facility] and ideally he should follow-up in the next 1-2 weeks. Exam Vital Signs (past 8 hours): - 08/29/20 08:00 08/29/20 12:30 Temperature 98.4 F 97.8 F Pulse Rate 81 83 Respiratory Rate 16 17 Blood Pressure 121/75 114/78 Pulse Oximetry 98 97 Oxygen Delivery Method Room Air Oxygen Flow Rate 0 Narrative Exam Narrative: GENERAL APPEARANCE: Well developed, well nourished, in no acute distress. SKIN: Inspection of the skin reveals no rashes, ulcerations or petechiae. HEENT: Normocephalic atraumatic, extraocular muscles are intact, oropharynx is clear and mucous membranes are moist, neck is supple without adenopathy NECK: Supple and symmetric. There was no thyroid enlargement, and no tenderness, or masses were felt. CHEST: Normal AP diameter and normal contour without any kyphoscoliosis. LUNGS: Auscultation of the lungs revealed no wheezes, rhonchi, or rales. CARDIOVASCULAR: There was a regular rate and rhythm without any murmurs, gallops, rubs. Peripheral pulses were 2+ and symmetric. ABDOMEN: Soft and nontender with normal bowel sounds. No ascites was noted. MUSCULOSKELETAL: There was no tenderness or effusions noted. Muscle strength and tone were normal. EXTREMITIES: No cyanosis, clubbing or edema. NEUROLOGIC: Alert and oriented x 3. Normal affect. Gait was normal. Strength is +5/5 in the Upper Extremities and Lower Extremities Bilaterally. Sensation to touch was normal. Objective Labs Result Diagrams: 08/29/20 05:13 08/29/20 05:13 Labs: Laboratory Results - last 24 hr 08/28/20 08/28/20 08/28/20 10:35 16:00 17:34 WBC RBC Hgb Hct MCV MCH MCHC RDW Plt Count Neut % (Auto) Lymph % (Auto) [place] % (Auto) Eos % (Auto) Baso % (Auto) Neut # (Auto) Lymph # (Auto) [place] # (Auto) Eos # (Auto) Baso # (Auto) Sodium Potassium Chloride Carbon Dioxide BUN Creatinine Estimated GFR BUN/Creatinine Ratio Glucose Hemoglobin A1c 12.4 H Calcium Magnesium 2.0 Total Creatine Kinase CK-MB (CK-2) CK-MB (CK-2) Rel Index Troponin I Triglycerides Cholesterol LDL Cholesterol, Calc HDL Cholesterol COVID-19 PCR Negative 08/28/20 08/28/20 08/28/20 17:56 17:56 23:42 WBC RBC Hgb Hct MCV MCH MCHC RDW Plt Count Neut % (Auto) Lymph % (Auto) [place] % (Auto) Eos % (Auto) Baso % (Auto) Neut # (Auto) Lymph # (Auto) [place] # (Auto) Eos # (Auto) Baso # (Auto) Sodium Potassium Chloride Carbon Dioxide BUN Creatinine Estimated GFR BUN/Creatinine Ratio Glucose Hemoglobin A1c Calcium Magnesium 1.9 Total Creatine Kinase 60 CK-MB (CK-2) TNP CK-MB (CK-2) Rel Index TNP Troponin I < 0.012 < 0.012 Triglycerides Cholesterol LDL Cholesterol, Calc HDL Cholesterol COVID-19 PCR 08/29/20 08/29/20 05:13 05:13 WBC 8.3 RBC 5.11 Hgb 14.8 Hct 44.9 MCV 87.9 MCH 28.9 MCHC 32.9 RDW 14.1 Plt Count 226 Neut % (Auto) 67.8 Lymph % (Auto) 23.9 L [place] % (Auto) 6.0 Eos % (Auto) 2.0 Baso % (Auto) 0.3 Neut # (Auto) 5600 Lymph # (Auto) 2000 [place] # (Auto) 500 Eos # (Auto) 200 Baso # (Auto) 0 Sodium 135 L Potassium 3.9 Chloride 103 Carbon Dioxide 26 BUN 18 Creatinine 0.49 L Estimated GFR > 60.0 BUN/Creatinine Ratio 36.7 H Glucose 250 H Hemoglobin A1c Calcium 9.1 Magnesium Total Creatine Kinase CK-MB (CK-2) CK-MB (CK-2) Rel Index Troponin I Triglycerides 94 Cholesterol 128 L LDL Cholesterol, Calc 59 HDL Cholesterol 50 COVID-19 PCR Discharge Plan Discharge Plan Patient Disposition: Home Provider Discharge Comment: You were admitted to the hospital for high blood sugars. You had a treadmill stress test which you did not achieve peak heart rate but there are no concerning findings. Echocardiogram pending final read but will call with concerning findings. You wish to establish care with a PCP here in [place]. Have started you on insulin for your high sugar level of >12. Please check your blood sugars and be aware of low blood sugars. If your blood sugar drops low please take some juice or carbohydrate meals until improved and then would not further continue insulin therapy until established with your PMD. Discharge orders & Medications Prescriptions: New (DME) blood-glucose meter [True Metrix Glucose Meter] [facility] [place] See Rx Instructions .ROUTE .MEDSUPPLY Qty: 1 RF: 0 (DME) True Metrix Glucose Test Strip Strip See Rx Instructions .ROUTE .MEDSUPPLY Qty: 150 RF: 0 Lantus Solostar U-100 Insulin 100 unit/mL (3 mL) insulin pen 5 unit SUBCUT DAILY 30 Days Qty: 3 RF: 0 (DME) pen needle, diabetic [Pen Needle] 32 gauge x 5/32 needle See Rx Instructions .ROUTE .MEDSUPPLY Qty: 50 RF: 0 glipizide 5 mg tablet 5 mg PO BID 30 Days Qty: 60 RF: 0 Discontinued glipizide 10 mg tablet 10 mg PO BID RF: 0 Follow up/Referrals: Paul Rosas ARNP [[employer]] - 1 Week (To establish care, uncontrolled DM A1c 12 started low dose long acting.) Diet/Activity/Treatments Diet: Diet as Tolerated and Carb-consistent/Diabetic Activity: As tolerated Visit Report/Discharge Packet Instructions: Diabetes and Cardiovascular Disease: What's the Link?, Type 2 Diabetes, Insulin Glargine (rDNA origin) Injection, Glipizide Visit Report Forms: Patient Portal/API, Stroke Signs & Symptoms Discharge Data Attending Provider: Jacqueline Fair Admit Date/Time: 08/28/20 15:49 Discharges patient from system. Discharge Date/Time: 08/29/20 17:00
[2020-08-29 15:30] VITALS: BP 125/78; PULSE 80; RESP 20; TEMP 37; O2SAT 99
--- NOTE | 2020-08-29 17:18 | PC.NURSE ---
Pt discharge instructions given w/understanding. HL D/C'd intact Escorted by staff via W/C to waiting vehicle. D/C in stable condition.
--- NOTE | 2020-08-29 18:35 | DI.NM.S_ITS ---
DATE OF SERVICE: 08/29/2020 PROCEDURE PERFORMED: Non-imaging exercise treadmill study. INDICATIONS: Chest pain. ORDERING PROVIDER: KANE Oviedo. FINDINGS: 1. The patient was able to exercise for 10 minutes 27 seconds on a standard Jaxson protocol, suggesting moderately impaired exercise capacity with an CARMINA of +32%, achieving 10.1 METS, although he stopped because of feeling lightheaded rather than maximal performance and thus, likely a submaximal study. 2. He had a normal heart rate response to exercise achieving a maximum heart rate of 168 BPM (84% of his predicted maximum). He had a normal blood pressure response to exercise, despite his subjective lightheadedness. He had no chest discomfort. His resting ECG is normal, although with some T-wave flattening. There were no significant ST-segment shifts with exercise. There were no arrhythmias seen. IMPRESSION: 1. Normal exercise treadmill study for ischemia. 2. Submaximal study because of subjective lightheadedness, but with a normal hemodynamic response without any hypotension or chest pain. Ryan Kaplan - MARIANA/ken/kristen doc#: [id number]/job#: [id number] dd: 08/29/2020 16:39:00 dt: 08/29/2020 17:38:00 DICTATING MD/COPIES TO: Drew Fajardo MD; KANE Oviedo COPIES MNE: CARYL; ; KANE Oviedo
== END 2020-08-29 17:00 | disposition home or self-care (01) ==
LOC: ED 15:07 → AC 15:50
PROVIDERS: Nurse Practitioner Adult Health; Admitting Provider Internal Medicine; Emergency Provider Emergency Medicine; Referring Provider Emergency Medicine; Visit Provider Internal Medicine
DX: E11.65 Type 2 diabetes mellitus with hyperglycemia (principal); R07.9 Chest pain, unspecified; H53.8 Other visual disturbances; R55 Syncope and collapse; R00.2 Palpitations; Z79.4 Long term (current) use of insulin; Z11.59 Encounter for screening for other viral diseases
CPT/HCPCS: 36415; 71045; 80048; 80053; 80061; 80305; 81003; 81015; 82009; 82550; 82962; 83036; 83735; 84484; 85025; 87635; 93005; 93017; 93306; 96360; 96361; 96372; 99284; G0378